=== PATIENT | female | born 1930 | race Caucasian/White ===

== ENCOUNTER → 2019-08-01 | Day surgery (SDC) | payer MEDICARE, OTHER ==
[2019-07-29 11:13] LABS: BASOPHILS % 0.4 % (0.0-1.0); EOSINOPHILS # (AUTO) 0.2 (0.0-0.4); EOSINOPHILS % 2.4 % (0.0-6.0); HEMATOCRIT 41.1 % (34.2-44.1); HEMOGLOBIN 13.7 g/dL (12.0-16.0); LYMPHOCYTES # (AUTO) 1.1 (1.0-3.2); LYMPHOCYTES % 15.2 % (18.0-39.1); MEAN CORPUSCULAR HEMOGLOBIN 30.9 pg (28-32); MEAN CORPUSCULAR HGB CONC 33.3 g/dL (31-35); MEAN CORPUSCULAR VOLUME 92.8 fL (81-99); MONOCYTES # (AUTO) 0.7 (0.2-0.8); MONOCYTES % 9.3 % (4.4-11.3); NEUTROPHILS # (AUTO) 5.4 (2.1-6.9); NEUTROPHILS % 72.3 % (38.7-80.0); PLATELET COUNT 252 x10e3/uL (140-360); RED BLOOD COUNT 4.43 x10e6/uL (3.6-5.1); RED CELL DISTRIBUTION WIDTH 13.3 % (11.7-14.4)
--- NOTE | 2019-07-29 12:11 | Diagnostic Imaging Report ---
X-ray chest 2 views Comparison: None History: Preop Findings: Central airways unremarkable. Heart size normal. Atherosclerotic aorta. No pleural effusion. No pneumothorax. Hyperinflated lungs with low flat diaphragms. No definite focal lung disease. Visualized skeleton are unremarkable. Upper abdomen unremarkable. Impression: Possible emphysema. Signed by: Gilson Pritchard MD on 07/29/2019 12:08 PM
[~2019-08-01] MED LIST: BUSPIRONE HCL5 MG PO; CARTIA XT180 MG PO; CEFTRIAXONE SOD 1 GM/NS 50 ML 50 ML IV ONE; DICYCLOMINE HCL10 MG PO; ETOMIDATE 2 MG/ML 10 ML INJ IV ONE; FAMOTIDINE20 MG PO; IOPAMIDOL 300MG/ML 50ML INFUS..BTL IV ONE; METOPROLOL TART25 MG PO; OMEPRAZOLE40 MG PO; PRAVACHOL20 MG PO; PROBIOTIC & AC1 EACH PO; SEVOFLURANE INHAL SOLN 250 ML PEN BTL ONE; ZETIA10 MG PO
[2019-08-01 09:55] VITALS: BP 138/73
--- NOTE | 2019-08-01 13:49 | Operative Report ---
DATE OF PROCEDURE: 08/01/2019 SURGEON: Osorio Mcfarlane MD PREOPERATIVE DIAGNOSES: 1. Multiple chronic urinary tract infections. 2. Clinical signs and symptoms of interstitial cystitis without hematuria. POSTOPERATIVE DIAGNOSES: 1. Multiple chronic urinary tract infections. 2. Clinical signs and symptoms of interstitial cystitis without hematuria. PROCEDURES: 1. Cystourethroscopy with hydrodistention (entirely separate procedure for clinical signs and symptoms of interstitial cystitis without hematuria). 2. Cystourethroscopy with bilateral ureteral catheterization and bilateral retrograde pyelogram (separate procedure for microscopic hematuria and urinary tract infection). 3. Interpretation of retrograde pyelography. ANESTHESIA: General. ESTIMATED BLOOD LOSS: Minimal. COMPLICATIONS: None. INDICATIONS: Ms. Munguia is a very pleasant 88-year-old female with a history of multiple chronic urinary tract infections and clinical symptoms of interstitial cystitis. She and I had a long discussion about alternatives, risks, and benefits of doing nothing, cystoscopy, IVP, retrograde pyelogram, ultrasound, and hydrodistention. She voiced understanding of the options and elected to proceed. PROCEDURE IN DETAIL: After informed consent was obtained, the patient was taken to the operative suite, she was placed supine on the operative table, underwent general anesthesia by the Anesthesia Service. She was placed in dorsal lithotomy position and sterilely prepped and draped for cystoscopy. Severe vaginal atrophy with introital stenosis was noted. With a moderate degree of difficulty, the 21-Mauritanian cystoscope was introduced through the urethra into the bladder. Normal-appearing urethra was noted. Panendoscopy of bladder with some mild cystitis cystica and squamous metaplasia. The patient's bladder with a moderate degree of trabeculation was seen. Hydrodistention was performed with a capacity of 1000 mL. No glomerulations. No Hunner's ulcers. Bilateral retrograde pyelogram was performed, which were tortuous, but normal. The bladder was drained. The patient was awakened from anesthesia and transported to recovery room in excellent condition. Supervision of fluoroscopy and interpretation of retrograde ureteropyelography: I was present for the entire procedure and supervised fluoroscopy. There was no radiologist present. Attention was turned to the left and right ureteral orifices, which were catheterized with an 8-Mauritanian cone-tipped catheter. In retrograde fashion, contrast was injected that revealed delicate ureters, delicate pelvocaliceal systems. No evidence of filling defects. No evidence of hydronephrosis. IMPRESSION: Normal retrograde pyelograms. Please note at the cessation of the procedure, there was no family available for discussion. The patient was spoken to in the PACU. MD OWEN Gann/MODL /[id number]
== END | disposition home or self-care (01) ==
LOC: OR 06:46
PROVIDERS: ATTEND Urology
DX: N30.80 Other cystitis without hematuria (principal); N95.2 Postmenopausal atrophic vaginitis; N32.89 Other specified disorders of bladder; N39.46 Mixed incontinence; I10 Essential (primary) hypertension; I49.3 Ventricular premature depolarization; R35.1 Nocturia; Z01.810 Encounter for preprocedural cardiovascular examination; Z01.812 Encounter for preprocedural laboratory examination; Z01.818 Encounter for other preprocedural examination; Z11.59 Encounter for screening for other viral diseases; Z79.82 Long term (current) use of aspirin
CPT/HCPCS: 36415; 52005; 71046; 74420; 85025; 87635; 93005; C1758; C1769; J0696; Q9967